=== PATIENT | male | born 1980 | race Caucasian/White ===

== ENCOUNTER 2019-04-25 10:45 | Emergency (ER) | payer BC ==
[~2019-04-25] VITALS: Ht 177.8 cm; Wt 74.8 kg
[2019-04-25] MEDS ORDERED: POLYTRIM EYE DR10 ML OU (11:23)
[2019-04-25 11:48] VITALS: BP 127/89
== END 2019-04-25 11:49 | disposition home or self-care (01) ==
LOC: FSED 10:45
DX: H10.233 Serous conjunctivitis, except viral, bilateral (principal)
CPT/HCPCS: 36415; 80053; 80164; 85025; 99283

== ENCOUNTER 2020-09-16 18:21 | Observation (INO) | payer BC ==
[~2020-09-16] VITALS: Ht 177.8 cm; Wt 74.8 kg
[~2020-09-16 18:21] MED LIST: POLYTRIM EYE DR10 ML OU
[2020-09-16] MEDS ORDERED: MORPHINE SULFATE 2 MG/ML SYR 1ML IV ONE (18:40)
[2020-09-16] MEDS ORDERED: PANTOPRAZOLE 40 MG 10ML VIAL IV ONE (18:40)
[2020-09-16] MEDS ORDERED: ONDANSETRON HCL INJ 2MG/ML 2ML 2 MG/ML VIAL IV ONE (18:40)
[2020-09-16] MEDS ORDERED: SODIUM CHLORIDE 0.9% 1000ML 1,000 ML IV ONE (18:45)
--- NOTE | 2020-09-16 18:48 | Emergency Department Note ---
History of Present Illnes History of Present Illness Chief Complaint: Abdominal Complaints History of Present Illness This is a 40 year old male FROM HOME WITH COMPLAINTS OF ABDOMINAL PAIN, NAUSEA, AND DIARRHEA X 2 DAYS; STATES IT IS WORSE AFTER HE EATS. PATIENT ALERT AND ORIENTED, PAIN IS LOCATED IN UPPER ABD . 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 Any updates have been documented here. Past Medical History Recent Fever: No Clinical Suspicion of Infectio: No New/Unexplained Change in Ment: No Past Medical History: Other Mental Illness Other Medical History: BIPOLAR Past Surgical History: T&A Social History Smoking Cessation: Never Smoker Alcohol Use: None Any Illegal Drug Use: No Physically hurt or threatened: No Family History Family history of heart diseas: No Other Last Tetanus: UTD Review of Systems Review of Systems Constitutional: Reports no symptoms EENTM: Reports no symptoms Cardiovascular: Reports no symptoms Respiratory: Reports no symptoms Gastrointestinal: Reports as per HPI Genitourinary: Reports no symptoms Musculoskeletal: Reports no symptoms Integumentary: Reports no symptoms Neurological: Reports no symptoms Psychological: Reports no symptoms Endocrine: Reports no symptoms Hematological/Lymphatic: Reports no symptoms Review of other systems: All other systems negative Physical Exam Related Data Allergies: Coded Allergies: No Known Allergies (Unverified , 09/16/20) Triage Vital Signs Vital Signs Date Time Temp Pulse Resp B/P (MAP) Pulse Ox O2 Delivery O2 Flow Rate FiO2 09/16/20 18:38 98.3 62 20 149/96 100 Room Air Vital signs reviewed: Yes Physical Exam CONSTITUTIONAL Constitutional: Present well-developed, Present well-nourished; Absent distressed HENT HENT: Present normocephalic, Present atraumatic, Present oropharynx clear/moist, Present nose normal HENT L/R: Present left ext ear normal, Present right ext ear normal EYES Eyes: Reports PERRL, Reports conjunctivae normal NECK Neck: Present ROM normal PULMONARY Pulmonary: Present effort normal, Present breath sounds normal CARDIOVASCULAR Cardiovascular: Present regular rhythm, Present heart sounds normal, Present capillary refill normal, Present normal rate GASTROINTESTINAL Abdominal: Present soft, Present bowel sounds normal, Present tender (EPIGASTRIC AND RUQ); Absent guarding, Absent mass, Absent rebound, Absent left CVA tenderness, Absent right CVA tenderness GENITOURINARY Genitourinary: Present exam deferred SKIN Skin: Present warm, Present dry MUSCULOSKELETAL Musculoskeletal: Present ROM normal NEUROLOGICAL Neurological: Present alert, Present oriented x 3, Present no gross motor or sensory deficits PSYCHOLOGICAL Psychological: Present mood/affect normal, Present judgement normal Results Laboratory Laboratory Laboratory Tests Test 09/16/20 18:45 White Blood Count 12.47 x10e3/uL (4.8-10.8) Red Blood Count 4.98 x10e6/uL (4.3-5.7) Hemoglobin 15.6 g/dL (14.0-18.0) Hematocrit 45.4 % (38.2-49.6) Mean Corpuscular Volume 91.2 fL (81-99) Mean Corpuscular Hemoglobin 31.3 pg (28-32) Mean Corpuscular Hemoglobin Concent 34.4 g/dL (31-35) Red Cell Distribution Width 13.2 % (11.7-14.4) Platelet Count 223 x10e3/uL (140-360) Neutrophils (%) (Auto) 50.0 % (38.7-80.0) Lymphocytes (%) (Auto) 36.0 % (18.0-39.1) Monocytes (%) (Auto) 10.3 % (4.4-11.3) Eosinophils (%) (Auto) 1.3 % (0.0-6.0) Basophils (%) (Auto) 0.8 % (0.0-1.0) Neutrophils # (Auto) 6.2 (2.1-6.9) Lymphocytes # (Auto) 4.5 (1.0-3.2) Monocytes # (Auto) 1.3 (0.2-0.8) Eosinophils # (Auto) 0.2 (0.0-0.4) Basophils # (Auto) 0.1 (0.0-0.1) Absolute Immature Granulocyte (auto 0.20 x10e3/uL (0-0.1) Sodium Level 139 mmol/L (136-145) Potassium Level 4.3 mmol/L (3.5-5.1) Chloride Level 99 mmol/L (98-107) Carbon Dioxide Level 30 mmol/L (22-29) Anion Gap 14.3 mmol/L (8-16) Blood Urea Nitrogen 13 mg/dL (7-26) Creatinine 1.04 mg/dL (0.72-1.25) Estimat Glomerular Filtration Rate > 60 ML/MIN (60-) BUN/Creatinine Ratio 13 (6-25) Glucose Level 96 mg/dL (74-118) Calcium Level 9.9 mg/dL (8.4-10.2) Total Bilirubin 0.3 mg/dL (0.2-1.2) Aspartate Amino Transf (AST/SGOT) 17 IU/L (5-34) Alanine Aminotransferase (ALT/SGPT) 15 IU/L (0-55) Alkaline Phosphatase 42 IU/L (40-150) Creatine Kinase 53 IU/L (30-200) Creatine Kinase MB 0.70 ng/mL (0-5.0) Troponin I 0.007 ng/mL (0-0.300) Total Protein 8.1 g/dL (6.5-8.1) Albumin 4.3 g/dL (3.5-5.0) Globulin 3.8 g/dL (2.3-3.5) Albumin/Globulin Ratio 1.1 (0.8-2.0) Amylase Level 240 U/L (25-125) Lipase 757 U/L (8-78) Lab results reviewed: Yes Imaging Imaging results reviewed: Yes Impressions Exam Date: 09/16/20 Exam Time: 1950 REPORT STATUS: Signed EXAM: Right Upper Quadrant Ultrasound with Doppler INDICATION: Right upper quadrant pain. COMPARISON: None. TECHNIQUE: Transverse and longitudinal images of the right upper abdomen were obtained. Grayscale, color Doppler and spectral waveform analysis of the hepatic vasculature and splenic vein were performed. FINDINGS: Liver: Size: 14.8 cm in the right midclavicular line, normal Appearance: Normal echogenicity, smooth contour Mass: No focal masses Gallbladder: Stones/Sludge: None Wall: 0.3 cm Appearance: There are multiple gallbladder polyps, the largest measuring up to 0.5 cm. Sonographic Cooney's Sign: Negative Bile Ducts: Intrahepatic Ducts: No dilatation Extrahepatic Ducts: Common bile duct measures 0.4 cm, no dilatation Pancreas: Visualized portions of the pancreatic head, neck and proximal body are normal. Right Kidney: Size: 11.4 x 4.7 x 5.2 cm Echogenicity: Normal Parenchymal thickness: Normal Collecting system: No hydronephrosis Stones: None Cyst/Mass: None Vessels: Main Portal Vein: Diameter: 1.3 cm, normal. Normal flow direction. Aorta: Visualized portions are normal Inferior Vena Cava: Visualized portions are normal Free Fluid: No ascites or pleural effusion IMPRESSION: 1. Gallbladder polyps measuring up to 0.5 cm which are most likely benign polyps. However, due to multiple polyps present, recommend follow-up right upper quadrant ultrasound in one year and surgical consultation if there is any interval change in size. 2. No evidence of cholelithiasis or cholecystitis. LV hyper to kid LV hypo to spleen Leung hyper to LV Liver Male < 16 cm Female < 15 cm Kidneys: NL 9-12 cm, <13 cm Spleen < 12 cm CBD < 7 mm CHD < 4-5 mm GB Wall < 3 mm Hydrops > 10 x 5 cm PV < 13 mm Panc. duct 3-2-1 Signed by: Evita Casas MD on 09/16/2020 8:29 PM Dictated By: EVITA CASAS MD 28 Transcribed By: THIEN on 09/16/202028 COPY TO: NORMA WHITE MD~ Procedures 12 Lead ECG Interpretation ECG Interpretation : ECG: ECG 1 Cement Tester Assistant: Interpreted by ED physician Date: Sep 16, 2020 Time: 18:47 Rhythm: sinus rhythm Rate: normal BPM: 61 QRS axis: normal ST segments normal: Yes T waves normal: Yes Other findings: no other findings Clinical Impression: normal ECG Assessment & Plan Medical Decision Making MDM PT WITH ABD PAIN CBC,CMP, AMYLASE, LIPASE, EKG, CARDIAC ENZYMES, GALL BLADDER U/S, UA ORDERED TO EVAL FOR PANCREATITIS, MYOCARDIAL INFARCTION, ELEVATED LFT'S, GALLSTONES, UTI, ELECTROLYTE ABNORMALITY, DEHYDRATION MORPHINE 4 MG IV ORDERED PROTONIX 40 MG IV ORDERED ZOFRAN 4 MG IV ORDERED 1 LITER NS IV BOLUS ORDERED I SPOKE WITH DR YORK AND DR Rosario TOSCANO, ADMIT INPATIENT, MRCP IN AM Reassessment Reassessment time: 20:49 Reassessment PAIN MUCH BETTER AT THIS TIME, PT IN NAD Assessment & Plan Final Impression: (1) Pancreatitis (2) Gallbladder polyp Depart Disposition: ADMITTED Last Vital Signs Date Time Temp Pulse Resp B/P (MAP) Pulse Ox O2 Delivery O2 Flow Rate FiO2 09/16/20 18:38 98.3 62 20 149/96 100 Room Air Home Meds Active Scripts Polymyxin B Sulfate/Tmp (POLYTRIM EYE DROPS) 10 Ml Drops, 1 DROP OU 5XD for 5 Days Prov:JANAE LINDO MD 04/25/19 Medications in the ED Morphine Sulfate 4 mg NOW STAT IV ; Start 09/16/20 at 18:40; Stop 09/16/20 at 18:41; Status UNV Ondansetron HCl 4 mg NOW STAT IV ; Start 09/16/20 at 18:40; Stop 09/16/20 at 18:41; Status UNV Sodium Chloride 1,000 ml @ 999 mls/hr Q1H1M ONCE IV ; Start 09/16/20 at 18:45; Stop 09/16/20 at 19:45 Pantoprazole Sodium 40 mg NOW STAT IV ; Start 09/16/20 at 18:40; Stop 09/16/20 at 18:41; Status UNV NORMA WHITE MD Sep 16, 2020 18:48
[2020-09-16 18:56] LABS: BASOPHILS # (AUTO) 0.1 (0.0-0.1); BASOPHILS % 0.8 % (0.0-1.0); EOSINOPHILS # (AUTO) 0.2 (0.0-0.4); EOSINOPHILS % 1.3 % (0.0-6.0); HEMATOCRIT 45.4 % (38.2-49.6); HEMOGLOBIN 15.6 g/dL (14.0-18.0); LYMPHOCYTES # (AUTO) 4.5 (1.0-3.2); MEAN CORPUSCULAR HEMOGLOBIN 31.3 pg (28-32); MEAN CORPUSCULAR HGB CONC 34.4 g/dL (31-35); MEAN CORPUSCULAR VOLUME 91.2 fL (81-99); MONOCYTES # (AUTO) 1.3 (0.2-0.8); MONOCYTES % 10.3 % (4.4-11.3); NEUTROPHILS # (AUTO) 6.2 (2.1-6.9); PLATELET COUNT 223 x10e3/uL (140-360); RED BLOOD COUNT 4.98 x10e6/uL (4.3-5.7); RED CELL DISTRIBUTION WIDTH 13.2 % (11.7-14.4)
[2020-09-16 19:14] LABS: ALANINE AMINOTRANSFERASE 15 IU/L (0-55); ALBUMIN 4.3 g/dL (3.5-5.0); ALBUMIN/GLOBULIN RATIO 1.1 (0.8-2.0); ALKALINE PHOSPHATASE 42 IU/L (40-150); ANION GAP 14.3 mmol/L (8-16); BLOOD UREA NITROGEN 13 mg/dL (7-26); BUN/CREATININE RATIO 13 (6-25); CALCIUM 9.9 mg/dL (8.4-10.2); CARBON DIOXIDE 30 mmol/L (22-29); CHLORIDE 99 mmol/L (98-107); CREATINE KINASE 53 IU/L (30-200); CREATININE, SERUM 1.04 mg/dL (0.72-1.25); EST GLOMERULAR FILTRATION RATE > 60 ML/MIN (60-); GLUCOSE 96 mg/dL (74-118); POTASSIUM 4.3 mmol/L (3.5-5.1); SODIUM 139 mmol/L (136-145)
[2020-09-16 19:15] LABS: AMYLASE 240 U/L (25-125); LIPASE 757 U/L (8-78)
--- OUTSIDE RECORDS SUMMARY | 2020-09-16 19:37 | XMS REPORT | Continuity of Care Document ---
Author Author [facility] t Organization [facility] Address [address] [place] [address] Phone Unavailable Care Team Providers Care Medical Records Director Name Role Phone NO, PCP PCP Unavailable Payers Payer Name Policy Type Policy Number Effective Date Expiration Date [place] [employer] [place] Ppo [id number] 2019 00:00:00 [facility] Problems This patient has no known problems. Allergies, Adverse Reactions, Alerts This patient has no known allergies or adverse reactions. Medications Ordered Medication Name Filled Medication Name Start Date Stop Da te Current Medication? Ordering Clinician Indication Dosage Frequency Signature (SIG) Comments Components Source Polymyxin B Sulfate/Tmp (Polytrim Eye Drops) 10 Ml Harman ps Polymyxin B Sulfate/Tmp (Polytrim Eye Drops) 10 Ml Drops 2019-04-25 00:00:00 Yes A anali Oakley Md 1 5 Times Daily [facility] Procedures This patient has no known procedures. Encounters Start Date/Time End Date/Time Encounter Type Admission Type [facility] Care Department Encounter ID Source 2019-04-25 10:45:00 2019-04-25 11:49:00 Departed Emergency Room [facility] [id number] [facility] Results This patient has no known results.
[2020-09-16] MEDS ORDERED: HYDROMORPHONE 1MG/1ML INJ IV STA (20:15)
--- NOTE | 2020-09-16 20:32 | Diagnostic Imaging Report ---
EXAM: Right Upper Quadrant Ultrasound with Doppler INDICATION: Right upper quadrant pain. COMPARISON: None. TECHNIQUE: Transverse and longitudinal images of the right upper abdomen were obtained. Grayscale, color Doppler and spectral waveform analysis of the hepatic vasculature and splenic vein were performed. FINDINGS: Liver: Size: 14.8 cm in the right midclavicular line, normal Appearance: Normal echogenicity, smooth contour Mass: No focal masses Gallbladder: Stones/Sludge: None Wall: 0.3 cm Appearance: There are multiple gallbladder polyps, the largest measuring up to 0.5 cm. Sonographic Cooney's Sign: Negative Bile Ducts: Intrahepatic Ducts: No dilatation Extrahepatic Ducts: Common bile duct measures 0.4 cm, no dilatation Pancreas: Visualized portions of the pancreatic head, neck and proximal body are normal. Right Kidney: Size: 11.4 x 4.7 x 5.2 cm Echogenicity: Normal Parenchymal thickness: Normal Collecting system: No hydronephrosis Stones: None Cyst/Mass: None Vessels: Main Portal Vein: Diameter: 1.3 cm, normal. Normal flow direction. Aorta: Visualized portions are normal Inferior Vena Cava: Visualized portions are normal Free Fluid: No ascites or pleural effusion IMPRESSION: 1. Gallbladder polyps measuring up to 0.5 cm which are most likely benign polyps. However, due to multiple polyps present, recommend follow-up right upper quadrant ultrasound in one year and surgical consultation if there is any interval change in size. 2. No evidence of cholelithiasis or cholecystitis. LV hyper to kid LV hypo to spleen Leung hyper to LV Liver Male < 16 cm Female < 15 cm Kidneys: NL 9-12 cm, <13 cm Spleen < 12 cm CBD < 7 mm CHD < 4-5 mm GB Wall < 3 mm Hydrops > 10 x 5 cm PV < 13 mm Panc. duct 3-2-1 Signed by: Preet Macias MD on 09/16/2020 8:29 PM
[2020-09-16] MEDS ORDERED: HYDROMORPHONE 1MG/1ML INJ ONE (20:35)
[2020-09-16 20:51] LABS: CLARITY,URINE SL CLOUDY (CLEAR); COLOR,URINE STRAW (YELLOW); LEUKOCYTE ESTERASE ,URINE NEGATIVE (NEGATIVE); NITRITE,URINE NEGATIVE (NEGATIVE); PROTEIN,URINE DIPSTICK NEGATIVE (NEGATIVE)
[2020-09-16 20:52] LABS: BILIRUBIN,URINE NEGATIVE (NEGATIVE); KETONES,URINE NEGATIVE (NEGATIVE); URINE UROBILINOGEN 1 mg/dL (0.2 - 1)
[2020-09-16] MEDS ORDERED: ONDANSETRON HCL INJ 2MG/ML 2ML 2 MG/ML VIAL IV PRN (21:00)
--- OUTSIDE RECORDS SUMMARY | 2020-09-16 21:00 | XMS REPORT | Continuity of Care Document ---
Author Author [facility] t Organization [facility] Address [address] [place] [address] Phone Unavailable Care Team Providers Care Convention Services Director Name Role Phone NO, PCP PCP Unavailable Suzette WHITE Attphys Unavailable Payers Payer Name Policy Type Policy Number Effective Date Expiration Date S [place] [employer] [place] Ppo [id number] 2019 00:00:00 [facility] Problems This patient has no known problems. [...] anali Oakley Md 1 5 Times Daily [facility] Procedures This patient has no known procedures. Encounters Start Date/Time End Date/[facility] En[facility] ID Source 2019-04-25 10:45:00 2019-04-25 11:49:00 Departed Emergency Room [facility] [id number] [facility] Results Test Description Test Time Test Comments Results Result Comments Source US GALLBLADDER 2020-09-16 20:20:00 [facility] 1980 Sex: M [facility] [address] [address] Patient Name: CHESTER AMBROCIO MR #: [id number] : 1980 Age/Sex: 40/M Req #: [id number] Adm Physician: Ordered by: NORMA WHITE MD Report #: [id number] Location: ER Room/Bed: Procedure: [id number] US/US GALLBLADDER Exam Date: 09/16/20 Exam Time: 1950 REPORT STATUS: Signed EXAM: Right Upper Quadrant Ultrasound with Doppler INDICATION: Right upper quadrant pain. COMPARISON: None. TECHNIQUE: Transverse and longitudinal images of the right upper abdomen were obtained. Grayscale, color Doppler and spectral waveform analysis of the hepatic vasculature and splenic vein were performed. FINDINGS: Liver: Size: 14.8 cm in the right midclavicular line, normal Appearance: Normal echogenicity, smooth contour Mass: No focal masses Gallbladder: Stones/Sludge: None Wall: 0.3 cm Appearance: There are multiple gallbladder polyps, the largest measuring up to 0.5 cm. Sonographic Cooney's Sign: Negative Bile Ducts: Intrahepatic Ducts: No dilatation Extrahepatic Ducts: Common bile duct measures 0.4 cm, no dilatation Pancreas: Visualized portions of the pancreatic head, neck and proximal body are normal. Right Kidney: Size: 11.4 x 4.7 x 5.2 cm Echogenicity: Normal Parenchymal thickness: Nor mal Collecting system: No hydronephrosis Stones: None Cyst/Mass: None Vessels: Main Portal Vein: Diameter: 1.3 cm, normal. Normal flow direction. Aorta: Visualized portions are normal Inferior Vena Cava: Visualized portions are normal Free Fluid: No ascites or pleural effusion IMPRESSION: 1. Gallbladder polyps measuring up to 0.5 cm which are most likely benign polyps. However, due to multiple polyps present, recommend follow-up right upper quadrant ultrasound in one year and surgical consultation if there is any interval change in size. 2. No evidence of cholelithiasis or cholecystitis. LV hyper to kid LV hypo to spleen Leung hyper to LV Liver Male < 16 cm Female < 15 cm Kidneys: NL 9-12 cm, <13 cm Spleen < 12 cm CBD < 7 mm CHD < 4-5 mm GB Wall < 3 mm Hydrops > 10 x 5 cm PV < 13 mm Panc. duct 3-2-1 Signed by: Evita Casas MD on 09/16/2020 8:29 PM Dictated By: EVITA CASAS MD 28 Transcribed By: THIEN on 09/16/202028 COPY TO: NORMA WHITE MD
[2020-09-16 21:03] LABS: AMORPHOUS SEDIMENT,URINE FEW (FEW); BACTERIA,URINE FEW /HPF; MUCUS,URINE MODERATE (RARE)
[2020-09-16] MEDS: SODIUM CHLORIDE 0.9% 1000ML 1,000 ML IV SCH (21:12)
[2020-09-16] MEDS ORDERED: LATUDA40 MG PO (21:38)
[2020-09-16] MEDS ORDERED: DIVALPROEX SOD500 MG PO (21:38)
[2020-09-16 21:50] VITALS: BP 119/90
[2020-09-16 22:00] VITALS: BP 119/90
[2020-09-16] MEDS ORDERED: ACETAMINOPHEN 325 MG TAB ONE (22:28)
--- NOTE | 2020-09-16 23:00 | NUR ---
Pt admitted to room 210 via WC from home. Pt states increased abdominal pain and nausea x2 days. Pt alert and orient to name, hospital, time, and diagnosis: gall bladder polyps and pancreatitis. Pt lungs CTA, RR 18 even and unlabored. Pt c/o mild abdominal pain at this time. Pt last BM today. Denies dysuria. Pt POC and meds reviewed. Pt oriented to room, call light within reach, bed low and locked.
[2020-09-17] MEDS: HYDROMORPHONE 1MG/1ML INJ IV PRN ×2 (00:40→05:29)
[2020-09-17 04:00] VITALS: BP 101/68
[2020-09-17] MEDS: SODIUM CHLORIDE 0.9% 1000ML 1,000 ML IV SCH ×3 (05:29→11:36)
[2020-09-17 06:37] LABS: BASOPHILS % 0.4 % (0.0-1.0); EOSINOPHILS # (AUTO) 0.1 (0.0-0.4); EOSINOPHILS % 1.3 % (0.0-6.0); HEMATOCRIT 38.6 % (38.2-49.6); HEMOGLOBIN 13.1 g/dL (14.0-18.0); LYMPHOCYTES # (AUTO) 3.5 (1.0-3.2); LYMPHOCYTES % 33.7 % (18.0-39.1); MEAN CORPUSCULAR HEMOGLOBIN 31.8 pg (28-32); MEAN CORPUSCULAR HGB CONC 33.9 g/dL (31-35); MEAN CORPUSCULAR VOLUME 93.7 fL (81-99); MONOCYTES # (AUTO) 1.3 (0.2-0.8); NEUTROPHILS # (AUTO) 5.4 (2.1-6.9); NEUTROPHILS % 51.4 % (38.7-80.0); PLATELET COUNT 175 x10e3/uL (140-360); RED BLOOD COUNT 4.12 x10e6/uL (4.3-5.7); RED CELL DISTRIBUTION WIDTH 13.2 % (11.7-14.4)
--- NOTE | 2020-09-17 07:00 | NUR ---
BEDSIDE SHIFT REPORT RECEIVED FROM THE MICA SPREADER RN. EDUCATED PT ABOUT FALL PRECAUTIONS. PT VERBALIZED UNDERSTANDING. BED IS LOW AND LOCKED. SIDE RAILS X2. CALL LIGHT WITH IN EASY REACH. ALL SAFETY MEASURES IN PLACE. PT DENIES NEEDS AT THIS TIME.
[2020-09-17 07:01] LABS: ALANINE AMINOTRANSFERASE 10 IU/L (0-55); ALBUMIN 3.1 g/dL (3.5-5.0); ALBUMIN/GLOBULIN RATIO 1.1 (0.8-2.0); ALKALINE PHOSPHATASE 35 IU/L (40-150); AMYLASE 207 U/L (25-125); ANION GAP 11.5 mmol/L (8-16); BLOOD UREA NITROGEN 12 mg/dL (7-26); BUN/CREATININE RATIO 14 (6-25); CALCIUM 8.3 mg/dL (8.4-10.2); CARBON DIOXIDE 28 mmol/L (22-29); CHLORIDE 107 mmol/L (98-107); CREATININE, SERUM 0.86 mg/dL (0.72-1.25); EST GLOMERULAR FILTRATION RATE > 60 ML/MIN (60-); GLUCOSE 97 mg/dL (74-118); LIPASE 677 U/L (8-78); POTASSIUM 4.5 mmol/L (3.5-5.1); SODIUM 142 mmol/L (136-145)
[2020-09-17] MEDS ORDERED: GADOBENATE DIMEGLUMINE 1 ML IV ONE (08:09)
[2020-09-17] MEDS ORDERED: SODIUM CHLORIDE 0.9% 50ML 50 ML ONE (08:10)
[2020-09-17 08:21] VITALS: BP 108/62
[2020-09-17] MEDS ORDERED: HYDRALAZINE HCL 20 MG/ML VIAL IV PRN (09:15)
[2020-09-17] MEDS ORDERED: ACETAMINOPHEN 325 MG TAB PO PRN (09:15)
[2020-09-17] MEDS ORDERED: FAMOTIDINE 20 MG/2 ML VIAL IV SCH (09:15)
[2020-09-17] MEDS ORDERED: MORPHINE SULFATE 2 MG/ML SYR 1ML IV PRN (09:15)
[2020-09-17] MEDS ORDERED: TYLENOL # 31 EA PO (09:20)
[2020-09-17 09:30] LABS: CHOL/HDL RATIO 4.1 (3.9-4.7)
--- NOTE | 2020-09-17 09:30 | NUR ---
D/C AFTER MRCP PER DR. Erica TOSCANO. INFORMED THE SAME TO JOEL BURGER.
[2020-09-17 09:39] VITALS: BP 108/62
--- NOTE | 2020-09-17 10:00 | NUR ---
PER DR. Rosario TOSCANO GALL BLADDER POLYPS MAY CAUSE CANCER AND PT NEEDS TO FOLLOW UP WITH DR. Rosario TOSCANO AN OUT PATIENT. INFORMED THE SAME TO PT AND AT BEDSIDE. PT AND AT BEDSIDE VERBALIZED UNDERSTANDING.
[2020-09-17] MEDS: DEPAKOTE DELAYED-RELEASE TAB 500 MG PO SCH ×2 (10:21→10:28)
[2020-09-17 12:06] VITALS: BP 135/89
--- NOTE | 2020-09-17 12:45 | NUR ---
PT OFF UNIT FOR MRCP IN SAFE CONDITION.
--- NOTE | 2020-09-17 13:02 | NUR ---
PT IS BACK TO THE UNIT. PT REFUSED MRCP PER MRI. PAGED DR. Rosario TOSCANO AND JOEL BURGER REPORTED THE SAME. D/C PT PER DR. Rosario TOSCANO AND JOEL BURGER.
--- NOTE | 2020-09-17 13:03 | NUR ---
PT WANTS TO GO HOME AND DOESN'T WANT TO WAIT. D/C ORDER IN PLACE.
--- NOTE | 2020-09-17 13:30 | NUR ---
PT DISCHARGED HOME SAFELY WITH FAMILY MEMBER. IV REMOVED, TIP INTACT. DRESSING APPLIED. RX GIVEN. FOLLOW UP FOR DR. Rosario TOSCANO OFFICE ADDRESS AND PHONE NO GIVEN. EDUCATED PT ABOUT THE IMPORTANCE OF FOLLOW UP WITH DR. DANILO TOSCANO. PT AND AT BEDSIDE VERBALIZED UNDERSTANDING. DISCHARGE INSTRUCTIONS GIVEN AND PATIENT VERBALIZED UNDERSTANDING. PT ESCORTED TO THE PRIVATE AUTO AT THE FRONT ENTRANCE. PT DENIED FURTHER NEEDS.
--- NOTE | 2020-09-18 03:23 | Discharge Summary ---
ADMISSION DIAGNOSES: 1. Pancreatitis. 2. Bipolar depression. DISCHARGE DIAGNOSES: 1. Pancreatitis. 2. Bipolar depression. HISTORY: Bipolar depression. SURGICAL HISTORY: None. FAMILY HISTORY: The patient's dad had diabetes. SOCIAL HISTORY: The patient admits to smoking one pack cigarettes a day. HOSPITAL COURSE: A 40-year-old male admits with complaints of constant epigastric abdominal cramping that began Tuesday night. The symptoms worsen with eating. On admission, the patient's lipase was 757. He was started on IV fluids. Ultrasound of the abdomen was done, which showed no evidence of cholelithiasis or cholecystitis. The following day, the lipase is trending down and the pain is improving. MRCP was ordered by the ER doctor. Initially, the patient agreed for the exam, but then refused and was very adamant about going home. The patient's triglycerides were 166. He was advised to make dietary changes. He was given new prescription for Tylenol 3 for pain. He was advised that even though he is going home, the way to help the pancreatitis is to stay n.p.o. until the pain has resolved, then start a clear liquid diet and advance slowly. The patient understands instructions and agrees to plan. Again, he is very adamant about going home as soon as possible. Vital signs are stable. The patient is afebrile. Dictated by Melissa Diaz NP MD MARY JANE Smith/STORML /[id number]
== END 2020-09-17 13:25 | disposition home or self-care (01) ==
LOC: ER 19:35 → ERHOLD 20:55 → INTOOBSV 20:55 → MED/SURG2 21:54
PROVIDERS: ADMIT Internal Medicine; ATTEND Internal Medicine
DX: K85.90 Acute pancreatitis without necrosis or infection, unspecified (principal); F31.9 Bipolar disorder, unspecified; K82.4 Cholesterolosis of gallbladder; Z11.59 Encounter for screening for other viral diseases
CPT/HCPCS: 36415 ×2; 76705; 80053 ×2; 80061; 81001; 82150 ×2; 82550; 82553; 83690 ×2; 84484; 85025 ×2; 93005; 99284; C9113; G0378 ×2; J1170 ×2; J2270; J2405; J7030 ×2; U0002